=== PATIENT | female | born 1970 | race Caucasian/White ===

== ENCOUNTER 2017-02-23 20:12 | Emergency (ER) | payer MEDICARE, MEDICAID ==
[~2017-02-23 20:12] MED LIST: AMITRIPTYLINE H25 MG; AMITRIPTYLINE H50 MG PO; AMITRIPTYLINE100 M1 PO; AMITRIPTYLINE100 MG; ASPIRIN325 MG PO; ATIVAN0.5 MG; CETIRIZINE HCL10 M1 PO; CIPRO500 M2 PO; CRESTOR10 MG PO; CRESTOR10 MG/TAB PO; CYCLOBENZAPRINE10 M1 PO; CYMBALTA60 M1 PO; FENOFIBRATE160 MG PO; FISH OIL1 CAP; FLAGYL500 M1 PO; FLONASE ALLERG9.9 ML; FLONASE16 G3 NS; FLUOXETINE HCL20 M PO; FOLIC ACID1 M1 PO; GLUCOPHAGE500 MG; GLUCOPHAGE500 MG PO; HYDROCODONE-AP473 ML PO; HYDROCORTISON28.411 TP; IBUPROFEN400 M1 PO; JANUVIA100 M1 PO; JANUVIA100 MG PO; LAMICTAL; LAMICTAL200 MG PO; LAMOTRIGINE ER200 MG PO; LAMOTRIGINE200 M2 PO; LANTUS100 U/ML SC; LISINOPRIL10 MG PO; LISINOPRIL2.5 M1 PO; LORAZEPAM1 MG PO; LORAZEPAM2 M1 PO; LOVASTATIN20 MG; LYRICA100 MG/CAP PO; MELOXICAM7.5 M1 PO; METFORMIN HCL1000 M2 PO; METHOTREXATE2.5 M1 SC; MONTELUKAST SOD10 M2 PO; NORCO 5-325 TA1 EACH PO; OMEPRAZOLE20 M1; OMEPRAZOLE20 M3 PO; PRISTIQ ER100 MG PO; PROZAC20 MG PO; SMZ-TMP DS 800-1 TAB PO; TRICOR145 M1; TRIGLIDE160 M1 PO; VIT B12; VITAMIN D2000 UNIT PO; VITAMIN D50000 UNI2 PO; VYVANSE60 M1 PO; XOPENEX HFA15 G1 INH; ZANTAC150 MG PO; ZYPREXA5 MG; ZYRTEC10 MG PO; [UNRECOGNIZED DRUG - OTHER]
[2017-03-21] MEDS ORDERED: LYRICA50 MG/CAP PO (01:09)
[2017-03-21] MEDS ORDERED: SYMBICORT INH (01:11)
[2017-03-21] MEDS ORDERED: FLAGYL500 M1 PO (03:54)
[2017-03-21] MEDS ORDERED: CIPRO500 M2 PO (03:54)
[2017-04-05] MEDS ORDERED: MACROBID 100 M100 M1 PO (18:16)
[2017-04-05] MEDS ORDERED: NORCO 5-325 TA1 EACH PO (18:16)
== END 2017-02-23 22:03 ==
LOC: EDMED 20:12
DX: M79.662 Pain in left lower leg (principal); E11.9 Type 2 diabetes mellitus without complications; E78.5 Hyperlipidemia, unspecified; Z90.49 Acquired absence of other specified parts of digestive tract; Z79.4 Long term (current) use of insulin; F17.210 Nicotine dependence, cigarettes, uncomplicated